=== PATIENT | male | born 1960 | race Caucasian/White ===

== ENCOUNTER 2018-01-13 18:15 | Inpatient (IN) | payer OTHER ==
[~2018-01-13] VITALS: Ht 180.3 cm; Wt 88.0 kg
[2018-01-13 19:45] LABS: BASOPHIL (%) 0.7 % (0-1); BASOPHIL COUNT 0.1 K/uL (0-0.1); EOSINOPHIL (%) 2.5 % (0-5); EOSINOPHIL COUNT 0.2 K/uL (0-0.3); HEMATOCRIT 46.2 % (38.0-50.0); HEMOGLOBIN 16.2 G/DL (12.5-16.6); IMMATURE GRANULOCYTE (%) 0.1 % (0.0-0.7); LYMPHOCYTE (%) 26.3 % (15-42); LYMPHOCYTE COUNT 1.9 K/uL (1.0-2.8); MCH 32.9 PG (29.0-34.0); MCHC 35.1 G/DL (30.0-36.0); MCV 93.7 FL (86-99); MONOCYTE (%) 11.3 % (3-12); MONOCYTE COUNT 0.8 K/uL (0-0.8); NEUTROPHIL (%) 59.1 % (45-76); NEUTROPHIL COUNT 4.2 K/uL (1.8-6.4); PLATELET COUNT 150 K/uL (156-360); RBC DIS.WIDTH-SD 37.4 % (39-53); RED BLOOD COUNT 4.93 M/uL (4.00-5.50); WHITE BLOOD COUNT 7.2 K/uL (4.1-10.2)
[2018-01-13 20:03] LABS: ALBUMIN 4.1 g/dL (3.2-4.8); CHLORIDE 105 mEq/L (99-109); POTASSIUM 4.2 mEq/L (3.7-5.4)
[2018-01-13 20:04] LABS: SODIUM 137 mEq/L (136-147)
[2018-01-13 20:06] LABS: GLUCOSE 113 mg/dL (70-99); TOTAL PROTEIN 6.8 g/dL (6.4-8.3); TROP-I INTERPRETATION NEGATIVE; TROPONIN-I < 0.01 ng/mL (0.0-0.30)
[2018-01-13 20:08] LABS: TOTAL BILIRUBIN 1.1 mg/dL (0.0-1.0)
[2018-01-13 20:09] LABS: ALKALINE PHOSPHATASE 49 IU/L (3-129)
[2018-01-13 20:10] LABS: GFR ESTIMATE (CALCULATED) > 59 mL/min/ (58.99-99999)
[2018-01-13 20:11] LABS: AST (GOT) 39 IU/L (2-34); UREA NITROGEN (BUN) 11 mg/dL (9-23)
[2018-01-13 20:12] LABS: ALT (GPT) 54 IU/L (3-49)
[2018-01-13] MEDS ORDERED: MECLIZINE HCL25 MG PO (22:24)
[2018-01-13] MEDS ORDERED: CEFDINIR300 MG PO (22:24)
[2018-01-13] MEDS ORDERED: ZYRTEC10 M3 PO (22:25)
[2018-01-13] MEDS ORDERED: ADVIL ALLERGY-1 EACH PO (22:26)
[2018-01-13] MEDS ORDERED: AMINO ACID1 EACH PO (22:27)
[2018-01-14] VITALS (19 sets, daily range): BP systolic 135–161; BP diastolic 77–95
[2018-01-14 13:31] LABS: HDL CHOLESTEROL 54 MG/DL (Desirable>=40); LDL CHOLESTEROL 141 mg/dL (Desirable<100); NON-HDL CHOLESTEROL 157 mg/dL (Desirable<160); TOTAL CHOLESTEROL 211 mg/dL (Desirable<200); TRIGLYCERIDES 78 MG/DL (Normal: <150)
[2018-01-15 01:05] VITALS: BP 143/80
[2018-01-15 04:39] VITALS: BP 138/73
[2018-01-15 07:18] VITALS: BP 155/76
[2018-01-15 11:03] VITALS: BP 135/76
[2018-01-15] MEDS ORDERED: ATORVASTATIN CA40 MG PO (14:31)
[2018-01-15] MEDS ORDERED: ASPIRIN EC325 MG PO (14:31)
[2018-01-15] MEDS ORDERED: HYDROCHLOROTH12.5 M3 PO (14:53)
[2018-01-15 15:03] VITALS: BP 129/72
[2018-01-15] MEDS ORDERED: ADULT ASPIRIN81 MG PO (17:52)
[2018-01-17 10:15] LABS: HEMOGLOBIN A1c (GLYCOHEMOGLOB) 4.8 % (Below 5.7)
== END 2018-01-15 18:07 | DRG 299 ==
LOC: EME 18:15 → ENRESERV 01-14 03:19 → 4WEST 01-14 03:20 → EDOF 01-14 03:20 → 5SOUTH 01-14 03:20 → ENRESERV 01-14 03:21 → 4WEST 01-14 04:22 → ENRESERV 01-14 22:04 → 4WEST 01-14 23:03 → 5SOUTH 01-14 23:15 → ENPENDDIS 01-15 15:21 → 5SOUTH 01-15 18:07
PROVIDERS: Emergency Medicine
DX: I77.74 Dissection of vertebral artery (principal); I63.011 Cerebral infarction due to thrombosis of right vertebral artery; G93.5 Compression of brain; I27.20 Pulmonary hypertension, unspecified; I08.1 Rheumatic disorders of both mitral and tricuspid valves; I10 Essential (primary) hypertension; R11.0 Nausea; E78.00 Pure hypercholesterolemia, unspecified; R26.2 Difficulty in walking, not elsewhere classified; R27.8 Other lack of coordination; Z91.81 History of falling
CPT/HCPCS: 70450; 70496; 70498; 70553; 80053; 80061; 83036; 84484; 85025; 87641; 93005; 93306; 99281; 99285; J1100; J1650; J7030

== ENCOUNTER 2018-01-17 12:23 | Emergency (ER) | payer OTHER ==
[~2018-01-17] VITALS: Ht 180.3 cm; Wt 91.9 kg
[~2018-01-17 12:23] MED LIST: ADULT ASPIRIN81 MG PO; ADVIL ALLERGY-1 EACH PO; AMINO ACID1 EACH PO; ASPIRIN EC325 MG PO; ATORVASTATIN CA40 MG PO; CEFDINIR300 MG PO; HYDROCHLOROTH12.5 M3 PO; MECLIZINE HCL25 MG PO; ZYRTEC10 M3 PO
[2018-01-17 12:43] LABS: BASOPHIL (%) 0.4 % (0-1); EOSINOPHIL (%) 4.5 % (0-5); EOSINOPHIL COUNT 0.3 K/uL (0-0.3); HEMATOCRIT 46.6 % (38.0-50.0); HEMOGLOBIN 16.7 G/DL (12.5-16.6); IMMATURE GRANULOCYTE (%) 0.3 % (0.0-0.7); LYMPHOCYTE (%) 26.8 % (15-42); LYMPHOCYTE COUNT 1.8 K/uL (1.0-2.8); MCH 33.1 PG (29.0-34.0); MCHC 35.8 G/DL (30.0-36.0); MCV 92.5 FL (86-99); MONOCYTE (%) 12.8 % (3-12); MONOCYTE COUNT 0.9 K/uL (0-0.8); NEUTROPHIL (%) 55.2 % (45-76); NEUTROPHIL COUNT 3.8 K/uL (1.8-6.4); PLATELET COUNT 182 K/uL (156-360); RBC DIS.WIDTH-CV 10.9 % (11.8-14.6); RBC DIS.WIDTH-SD 36.9 % (39-53); RED BLOOD COUNT 5.04 M/uL (4.00-5.50); WHITE BLOOD COUNT 6.8 K/uL (4.1-10.2)
[2018-01-17 12:49] LABS: INTER. NORMALIZED RATIO 1.1
[2018-01-17 12:54] LABS: AMYLASE 153 IU/L (1-118); CHLORIDE 104 mEq/L (99-109); POTASSIUM 4.2 mEq/L (3.7-5.4); SODIUM 137 mEq/L (136-147)
[2018-01-17 12:56] LABS: GLUCOSE 97 mg/dL (70-99)
[2018-01-17 12:57] LABS: APPEARANCE CLEAR ((CLEAR)); BILIRUBIN NEGATIVE; BLOOD NEGATIVE; COLOR STRAW ((YELLOW)); GLUCOSE (STRIP) NEGATIVE; KETONES NEGATIVE; LEUKOCYTES NEGATIVE; NITRITE NEGATIVE; PROTEIN (STRIP) NEGATIVE; UCUL ADDED? NO; UROBILINOGEN 0.2 MG/DL (0.2-1.0)
[2018-01-17 12:59] LABS: GFR ESTIMATE (CALCULATED) > 59 mL/min/ (58.99-99999); SERUM ETHYL ALCOHOL < 10 mg/dL
[2018-01-17 13:00] LABS: UREA NITROGEN (BUN) 14 mg/dL (9-23)
[2018-01-17 13:02] LABS: LIPASE 75 U/L (1.0-51.0)
[2018-01-17 13:03] LABS: TROP-I INTERPRETATION NEGATIVE; TROPONIN-I < 0.01 ng/mL (0.0-0.30)
[2018-01-17 13:46] LABS: AMPHETAMINE NEGATIVE (500 ng/mL); BARBITURATES NEGATIVE (200 ng/mL); BENZODIAZEPINES NEGATIVE (150 ng/mL); BUPRENORPHINE NEGATIVE (10 ng/mL); COCAINE NEGATIVE (150 ng/mL); METHADONE NEGATIVE (200 ng/mL); METHAMPHETAMINE NEGATIVE (500 ng/mL); OPIATES (MORPHINE) NEGATIVE (100 ng/mL); OXYCODONE NEGATIVE (100 ng/mL); PHENCYCLIDINE NEGATIVE (25 ng/mL); PROPOXYPHENE NEGATIVE (300 ng/mL); THC CANNABINOIDS NEGATIVE (50 ng/mL); TRICYCLIC ANTIDEPRESSANTS NEGATIVE (300 ng/mL)
[2018-01-17 14:47] VITALS: BP 123/85
== END 2018-01-17 14:49 | disposition home or self-care (01) ==
LOC: EME 12:23
PROVIDERS: Emergency Medicine
DX: R20.0 Anesthesia of skin (principal); R20.2 Paresthesia of skin; R51 Headache; R68.84 Jaw pain; Z86.73 Personal history of transient ischemic attack (TIA), and cerebral infarction without residual deficits
CPT/HCPCS: 70450; 70551; 80048; 81003; 82150; 83690; 84484; 85025; 85610; 85730; 86850; 86900; 86901; 99281; 99285; G0480

== ENCOUNTER 2018-01-23 21:17 | Emergency (ER) | payer OTHER ==
[~2018-01-23] VITALS: Ht 177.8 cm; Wt 88.3 kg
[2018-01-23 21:30] LABS: BASOPHIL (%) 0.5 % (0-1); EOSINOPHIL (%) 4.2 % (0-5); EOSINOPHIL COUNT 0.3 K/uL (0-0.3); HEMATOCRIT 44.1 % (38.0-50.0); HEMOGLOBIN 15.9 G/DL (12.5-16.6); IMMATURE GRANULOCYTE (%) 0.3 % (0.0-0.7); LYMPHOCYTE (%) 30.6 % (15-42); LYMPHOCYTE COUNT 2.4 K/uL (1.0-2.8); MCH 32.8 PG (29.0-34.0); MCHC 36.1 G/DL (30.0-36.0); MCV 90.9 FL (86-99); MONOCYTE (%) 11.6 % (3-12); MONOCYTE COUNT 0.9 K/uL (0-0.8); NEUTROPHIL (%) 52.8 % (45-76); NEUTROPHIL COUNT 4.1 K/uL (1.8-6.4); PLATELET COUNT 183 K/uL (156-360); RBC DIS.WIDTH-CV 10.6 % (11.8-14.6); RBC DIS.WIDTH-SD 35.8 % (39-53); RED BLOOD COUNT 4.85 M/uL (4.00-5.50); WHITE BLOOD COUNT 7.8 K/uL (4.1-10.2)
[2018-01-23 21:41] LABS: AMYLASE 109 IU/L (1-118); CHLORIDE 105 mEq/L (99-109); POTASSIUM 3.8 mEq/L (3.7-5.4); SODIUM 138 mEq/L (136-147)
[2018-01-23 21:43] LABS: GLUCOSE 96 mg/dL (70-99)
[2018-01-23 21:46] LABS: SERUM ETHYL ALCOHOL < 10 mg/dL
[2018-01-23 21:47] LABS: GFR ESTIMATE (CALCULATED) > 59 mL/min/ (58.99-99999); UREA NITROGEN (BUN) 19 mg/dL (9-23)
[2018-01-23 21:50] LABS: LIPASE 41 U/L (1.0-51.0)
[2018-01-23 21:51] LABS: TROP-I INTERPRETATION NEGATIVE; TROPONIN-I < 0.01 ng/mL (0.0-0.30)
[2018-01-23 21:57] LABS: PTT 29.8 SEC (25-37)
[2018-01-23 22:25] LABS: APPEARANCE CLEAR ((CLEAR)); BILIRUBIN NEGATIVE; BLOOD NEGATIVE; COLOR STRAW ((YELLOW)); GLUCOSE (STRIP) NEGATIVE; KETONES NEGATIVE; LEUKOCYTES NEGATIVE; NITRITE NEGATIVE; PROTEIN (STRIP) NEGATIVE; UCUL ADDED? NO; UROBILINOGEN 0.2 MG/DL (0.2-1.0)
[2018-01-23 22:45] LABS: AMPHETAMINE NEGATIVE (500 ng/mL); BARBITURATES NEGATIVE (200 ng/mL); BENZODIAZEPINES NEGATIVE (150 ng/mL); BUPRENORPHINE NEGATIVE (10 ng/mL); COCAINE NEGATIVE (150 ng/mL); METHADONE NEGATIVE (200 ng/mL); METHAMPHETAMINE NEGATIVE (500 ng/mL); OPIATES (MORPHINE) NEGATIVE (100 ng/mL); OXYCODONE NEGATIVE (100 ng/mL); PHENCYCLIDINE NEGATIVE (25 ng/mL); PROPOXYPHENE NEGATIVE (300 ng/mL); THC CANNABINOIDS NEGATIVE (50 ng/mL); TRICYCLIC ANTIDEPRESSANTS NEGATIVE (300 ng/mL)
[2018-01-24] MEDS ORDERED: MECLIZINE HCL25 MG PO (00:15)
[2018-01-24 00:39] VITALS: BP 143/81
== END 2018-01-24 00:43 | disposition home or self-care (01) ==
LOC: EME 21:17
PROVIDERS: Emergency Medicine
DX: R42 Dizziness and giddiness (principal); Z86.73 Personal history of transient ischemic attack (TIA), and cerebral infarction without residual deficits; I10 Essential (primary) hypertension; Z79.82 Long term (current) use of aspirin
CPT/HCPCS: 70450; 70551; 80048; 81003; 82150; 83690; 84484; 85025; 85610; 85730; 86850; 86900; 86901; 93005; 99281; 99285; G0480